=== PATIENT | female | born 1965 | race Caucasian/White ===

== ENCOUNTER → 2024-08-13 | Day surgery (SDC) | payer OTHER ==
[2024-08-13] MEDS: Lidocaine 1% 30 ML SDV INJECT SCH (12:03)
== END ==
LOC: CC.SDS 11:06
PROVIDERS: ATTEND Family Medicine
DX: I87.2 Venous insufficiency (chronic) (peripheral) (principal); I83.813 Varicose veins of bilateral lower extremities with pain; M70.60 Trochanteric bursitis, unspecified hip; Z79.82 Long term (current) use of aspirin; Z79.899 Other long term (current) drug therapy; Z87.891 Personal history of nicotine dependence
CPT/HCPCS: C1888; J3490